=== PATIENT | female | born 1965 | race Caucasian/White ===

== ENCOUNTER 2020-01-17 01:43 | Emergency (ER) | payer BC ==
--- NOTE | 2020-01-17 02:05 | EDM.PDOC ---
ED HPI GENERAL MEDICAL PROBLEM - General Chief Complaint: Abdominal Pain Stated Complaint: STOMACH PAINS, HEADS HURTS Time Seen by Provider: 01/17/20 01:50 Source of Information: Reports: Patient History Limitations: Reports: No Limitations - History of Present Illness INITIAL COMMENTS - FREE TEXT/NARRATIVE: ED with c/o stomach burning, No nausea vomiting or bloating. Tried tums one time at home and didn't help. Hx "ulcer one month ago. Had antibiotic, no further management. Pizza for supper tonight. No known COVID exposure. Normal BM, last today. No fever or chills. Epigastric Pain Score (Numeric/FACES): 6 - Related Data Allergies Allergy/AdvReac Type Severity Reaction Status Date / Time No Known Allergies Allergy Verified 01/17/20 01:50 Home Meds: Home Meds PARoxetine [Paxil] 10 mg PO DAILY 01/17/20 [History] Past Medical History - Past Surgical History Female Surgical History: Reports: Hysterectomy Social & Family History - Tobacco Use Tobacco Use Status *Q: Never Tobacco User Second Hand Smoke Exposure: No - Recreational Drug Use Recreational Drug Use: No ED ROS GENERAL - Review of Systems Review Of Systems: Comprehensive ROS is negative, except as noted in HPI. ED EXAM, GI/ABD - Physical Exam Exam: See Below Exam Limited By: No Limitations General Appearance: Alert, Anxious, Mild Distress Ears: Normal External Exam, Hearing Grossly Normal Head: Atraumatic, Normocephalic Neck: Full Range of Motion Respiratory/Chest: No Respiratory Distress, Lungs Clear, Normal Breath Sounds Cardiovascular: Normal Peripheral Pulses, Regular Rate, Rhythm GI/Abdominal Exam: Normal Bowel Sounds, Soft, Tender (mild mid epigastric) Extremities: Normal Inspection Neurological: Alert, Oriented, Normal Cognition Psychiatric: Anxious Skin Exam: Warm, Dry, Intact, Normal Color Course - Vital Signs Last Recorded V/S: Last Vital Signs Temp 97.4 F 01/17/20 01:46 Pulse 83 01/17/20 01:46 Resp 18 01/17/20 01:46 BP 171/77 H 01/17/20 01:56 Pulse Ox 98 01/17/20 01:46 - Orders/Labs/Meds Labs: Laboratory Tests 01/17/20 01/17/20 Range/Units 02:45 02:45 WBC 9.8 (5.0-10.0) 10^3/uL RBC 4.33 (4.2-5.4) 10^6/uL Hgb 14.3 (12.0-16.0) g/dL Hct 41.3 (37.0-47.0) % MCV 95.4 (80-100) fL MCH 33.0 (27.0-34.0) pg MCHC 34.6 (33.0-35.0) g/dL Plt Count 236 (150-450) 10^3/uL Neut % (Auto) 74.0 (42.2-75.2) % Lymph % (Auto) 16.2 L (20.5-50.1) % [place] % (Auto) 8.6 H (2-8) % Eos % (Auto) 1.0 (1.0-3.0) % Baso % (Auto) 0.2 (0.0-1.0) % Sodium 134 L (136-145) mmol/L Potassium 3.3 L (3.5-5.1) mmol/L Chloride 99 (98-107) mmol/L Carbon Dioxide 23 (21-32) mmol/L Anion Gap 15.3 H (7-13) mEq/L BUN 14 (7-18) mg/dL Creatinine 1.04 H (0.55-1.02) mg/dL Est Cr Clr Drug Dosing 48.34 mL/min Estimated GFR (MDRD) 55 BUN/Creatinine Ratio 13.5 (No establ ref range) Glucose 110 H (74-99) mg/dL Calcium 9.9 (8.5-10.1) mg/dL Total Bilirubin 0.8 (0.2-1.0) mg/dL AST 21 (15-37) U/L ALT 27 (14-59) U/L Alkaline Phosphatase 100 (46-116) U/L Total Protein 8.1 (6.4-8.2) g/dL Albumin 4.2 (3.4-5.0) g/dL Globulin 3.9 Albumin/Globulin Ratio 1.1 Amylase 87 (25-115) U/L Lipase 166 (73-393) U/L Meds: Medications Discontinued Medications Generic Name Dose Route Start Last Admin Trade Name Freq PRN Reason Stop Dose Admin Famotidine 20 mg 01/17/20 02:35 01/17/20 02:52 Pepcid IVPUSH 01/17/20 02:36 20 mg ONETIME ONE Administration - Re-Assessments/Exams Free Text/Narrative Re-Assessment/Exam: 01/17/20 06:34 Pain improved following pepcid. Departure - Departure Time of Disposition: 03:24 Disposition: Home, Self-Care 01 Condition: Good Clinical Impression: Peptic ulcer, Diarrhea - Discharge Information *PRESCRIPTION DRUG MONITORING PROGRAM REVIEWED*: No *COPY OF PRESCRIPTION DRUG MONITORING REPORT IN PATIENT GAIL: No Instructions: Peptic Ulcer, [id number] Referrals: PCP,None [Primary Care Provider] - Forms: ED Department Discharge Additional Instructions: omeprazole 20mg one twice daily for one week then one time daily recheck in clinic bland diet low fat limit caffeine and spicy foods Sepsis Event Note (ED) - Evaluation Sepsis Screening Result: No Definite Risk - Focused Exam Vital Signs: Vital Signs Temp Pulse Resp BP Pulse Ox 01/17/20 01:56 171/77 H 01/17/20 01:46 97.4 F 83 18 184/92 H 98
[2020-01-17] MEDS ORDERED: Famotidine 20 MG/2 ML SDV IVPUSH ONE (02:35)
[2020-01-17 03:07] LABS: ANION GAP 15.3 mEq/L (7-13)
== END 2020-01-17 03:33 | disposition home or self-care (01) ==
LOC: DL.ED 01:43
DX: K27.9 Peptic ulcer, site unspecified, unspecified as acute or chronic, without hemorrhage or perforation (principal); R19.7 Diarrhea, unspecified; Z90.710 Acquired absence of both cervix and uterus
CPT/HCPCS: 36415; 80053; 82150; 83690; 85025; 96374; 99284; J3490; 99283